=== PATIENT | male | born 1960 | race Caucasian/White ===

== ENCOUNTER 2017-01-29 07:11 | Day surgery (SDC) | payer OTHER ==
[~2017-01-29] VITALS: Ht 180.3 cm; Wt 95.4 kg
[~2017-01-29 07:11] MED LIST: 5-HTP100 MG PO; ALLOPURINOL300 MG PO; ALPHA LIPOIC ACID PO; ASPIRIN EC325 MG PO; CENTRUM1 TAB PO; CHLOROTHALIDONE PO; CHLORTHALIDONE25 MG PO; COZAAR100 MG PO; DULCOLAX5 MG PO; GLIMEPIRIDE1 MG PO; JANUVIA100 MG PO; LOVASTATIN20 MG PO; MELATONIN1 MG PO; METFORMIN HCL500 MG PO; MORPHINE SULFA100 M2 PO; NIASPAN500 MG PO; OMEGA-3 KRILL O1 CA1 PO; OXYCODONE HCL E80 MG PO; PROBIOTI1 PO; TOPROL XL50 MG PO; VITAMIN B121000 CR PO; VITAMIN D1000 UNIT PO
--- NOTE | 2017-01-29 08:05 | NUR ---
PREOP INSTRUCTIONS GIVEN TO PATIENT. QUESTIONS ANSWERED. PATIENT VERBALIZES UNDERSTANDING. CONSENT CONFIRMED. EXTREMITY MARKED BY . NO PREOP MEDICATIONS. BS 132. FOOT CLEANSED WITH CLOR PREP.
--- NOTE | 2017-01-29 10:12 | NUR ---
REC'D FROM OR; SPONT RESP. LMA INSITU; BEGINS TO ROUSE.
--- NOTE | 2017-01-29 10:19 | Provider's Discharge Care Plan ---
Problem, Goal, Plan Problem List 1. Exostosis of bone of foot Goals: Improve function Instructions: Follow up as directed, Take meds as directed
--- NOTE | 2017-01-29 10:19 | NUR ---
AWAKE. LMA DC'D; PT C/O FEELING COOL; WARM BLANKETS APPLIED.
--- NOTE | 2017-01-29 10:19 | Provider's Discharge Care Plan ---
Problem, Goal, Plan Problem List 1. Exostosis of bone of foot Goals: Improve function Instructions: Follow up as directed, Take meds as directed
--- NOTE | 2017-01-29 10:33 | NUR ---
DR. KNOWLES HERE TO SPEAK WITH PT RE FINDINGS. QUESTIONS ANSWERED. COMFORTABLE. SHOE ON. CMS=GOOD.
--- NOTE | 2017-01-29 11:08 | OPERATIVE REPORT ---
DATE OF SURGERY: 01/29/2017 SURGEON: Jaya Devlin DPM JAVA TECH: None. PREOPERATIVE DIAGNOSES: 1. Hypertrophic tibial sesamoid, right foot 2. Nonhealing wound, plantar right forefoot 3. Diabetes with peripheral neuropathy POSTOPERATIVE DIAGNOSES: 1. Hypertrophic tibial sesamoid, right foot 2. Nonhealing wound, plantar right forefoot 3. Diabetes with peripheral neuropathy PROCEDURE PERFORMED: 1. Exostectomy with thinning of the tibial sesamoid, right foot ANESTHESIA: General with local. ESTIMATED BLOOD LOSS: Less than 5 mL. PATHOLOGY SPECIMEN: None. DRAINS: None. IMPLANTS: None. INDICATIONS: The patient is a 56-year-old white diabetic male with a chronic nonhealing wound on the plantar aspect of the right forefoot secondary to hypertrophic tibial sesamoid of the right foot. The patient went through a series of total contact casting and diabetic shoes, with recurrence of the wound. The patient now desires surgical thinning of the tibial sesamoid in attempt to facilitate healing of the wound site. SURGICAL TECHNIQUE: The patient was brought to the operating room and placed on the operating table in the supine position. General anesthesia was then administered. Local anesthesia was then achieved via the injection of 10 mL of a 1:1 mix of 1% lidocaine plain and 0.5% bupivacaine plain in the form of a Villegas block to the right foot. The right lower extremity was then prepped and draped in usual sterile orthopedic fashion. The right foot and ankle were then exsanguinated with an Esmarch bandage and a previously placed well-padded right ankle tourniquet was inflated to 250 mmHg pressure to provide hemostasis during the procedure. The Esmarch bandage was then removed and attention was directed to the medial aspect of the first metatarsophalangeal joint of the right foot. A curvilinear incision measuring approximately 2.5 to 3 cm in length was made. The incision was deepened by means of careful blunt and sharp dissection, with care taken to clamp and cauterize small bleeders as necessary and to retract vital structures. The dissection was then carried deeply via sterile 15 blade, and the tibial sesamoid was encountered and the margins identified. A power bone saw was utilized to then resect the plantar one-half of the tibial sesamoid bone. The resected plantar half was then freed from surrounding soft tissue carefully with a [place] 6700 blade, taking care to leave the flexor tendons intact and unharmed. The resected portion of the tibial sesamoid was removed in toto. The resected surface of the remaining tibial sesamoid was rasped smooth. The surgical wound was then copiously flushed with sterile saline. The capsular tissue was then repaired utilizing 3-0 Polysorb suture. The subcutaneous layer was then repaired and closed utilizing buried knot stitches of 4-0 Polysorb suture. The skin incision was reapproximated and closed with a continuous interlocking suture of 4-0 Surgipro. The surgical site was then dressed with bacitracin ointment, Adaptic, 4 x 4 gauze, Conform, and a lightly-placed Valdez bandage. The right ankle tourniquet was deflated after a total of 33 minutes of tourniquet time, and a normal hyperemic reaction was noted to take place in the right foot. The patient tolerated the anesthesia and procedure well and left the operating room in apparent satisfactory condition. The patient was then taken to the recovery room where he had an uneventful recovery. The patient will be followed for his postoperative care as an outpatient in my office.
--- NOTE | 2017-01-29 11:25 | NUR ---
PATIENT RETURNED TO THE FLOOR AWAKE AND TALKING. VSS. DENIES PAIN. PO OFFERED. TOLERATED CLEAR LIQUIDS, GOING OUT BREAKFAST. DRESSING D/I. SURGICAL SHOE ON. KB
--- NOTE | 2017-01-29 12:01 | NUR ---
CONTINUES TO DENY PAIN. DISCHARGE INSTRUCTIONS GIVEN TO PATENT. QUESTIONS ANSWERED. PATIENT VERBALIZES UNDERSTANDING. DISCHARGED HOME WITH HIS . ZEN
[2017-01-29 12:09] VITALS: BP 136/85
== END 2017-01-29 12:02 | disposition home or self-care (01) ==
LOC: OR SRH 07:11 → SCU SRH 07:22 → OR SRH 09:00
PROVIDERS: Podiatrist
PROC: 0QBN0ZZ Excision of Right Metatarsal, Open Approach (ICD-10-PCS; principal; 2017-01-29 09:00)
DX: M89.371 Hypertrophy of bone, right ankle and foot (principal); E11.621 Type 2 diabetes mellitus with foot ulcer; L97.519 Non-pressure chronic ulcer of other part of right foot with unspecified severity; E11.42 Type 2 diabetes mellitus with diabetic polyneuropathy; Z79.84 Long term (current) use of oral hypoglycemic drugs
CPT/HCPCS: 29229; 29240; 50004; 60001; 70002; 80212; 80575; 81267; 83266; 83414; 83774; 84038; 84045; 90074; 95059